=== PATIENT | female | born 2000 | race Caucasian/White ===

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

== ENCOUNTER 2019-04-16 16:18 | Emergency (ER) | payer OTHER ==
[~2019-04-16] VITALS: Ht 160 cm; Wt 58.1 kg
[~2019-04-16 16:18] MED LIST changes: +AMOXICILLIN 50500 MG PO; +TRAMADOL 50 MG50 MG PO
[2019-04-16 16:45] LABS: URINE BILIRUBIN NEGATIVE (Negative); URINE BLOOD TRACE (Negative); URINE CLARITY CLEAR; URINE COLOR YELLOW; URINE GLUCOSE-RANDOM NEGATIVE (Negative); URINE KETONES NEGATIVE (Negative); URINE LEUKOCYTES-REFLEX NEGATIVE (Negative); URINE NITRITE-REFLEX NEGATIVE (Negative); URINE PROTEIN NEGATIVE (Negative); URINE UROBILINOGEN 0.2 E.U./dl (0.2-1.0)
[2019-04-16] MEDS ORDERED: ACETAMINOPHEN-1 EAC1 PO (17:58)
[2019-04-16] MEDS ORDERED: NAPROSYN500 MG PO (17:58)
[2019-04-16 18:30] VITALS: BP 108/88
== END 2019-04-16 18:31 | disposition home or self-care (01) ==
LOC: M.ERS 16:18
PROVIDERS: Physician Assistant
DX: M54.5 Low back pain (principal)

== ENCOUNTER 2020-01-26 13:24 | Emergency (ER) | payer OTHER ==
[~2020-01-26] VITALS: Ht 160 cm; Wt 59.0 kg
[~2020-01-26 13:24] MED LIST changes: +ACETAMINOPHEN-1 EAC1 PO; +NAPROSYN500 MG PO
[2020-01-26] MEDS ORDERED: IBU600 MG PO (15:37)
[2020-01-26] MEDS ORDERED: FLEXERIL PO (15:37)
[2020-01-26 16:07] VITALS: BP 106/57
== END 2020-01-26 16:08 | disposition home or self-care (01) ==
LOC: M.ERS 13:24
DX: S60.212A Contusion of left wrist, initial encounter (principal); S46.912A Strain of unspecified muscle, fascia and tendon at shoulder and upper arm level, left arm, initial encounter; S13.4XXA Sprain of ligaments of cervical spine, initial encounter; Z79.899 Other long term (current) drug therapy; V49.69XA Unspecified car occupant injured in collision with other motor vehicles in traffic accident, initial encounter; Y93.89 Activity, other specified; Y92.488 Other paved roadways as the place of occurrence of the external cause; Y99.8 Other external cause status